=== PATIENT | female | born 1940 | race Caucasian/White ===

== ENCOUNTER 2016-11-16 19:46 | Emergency (ER) | payer OTHER ==
[~2016-11-16] VITALS: Ht 160 cm; Wt 63.4 kg
[2016-11-16 19:49] VITALS: Ht 160 cm; Wt 63.4 kg
[2016-11-16] MEDS ORDERED: SOD CHLORIDE 0.9% 1,000 ML IV STA ×2 (19:52)
[2016-11-16] MEDS ORDERED: CEFEPIME 2GM/50 ML (PMX) 50 ML IVPB STA (19:52)
[2016-11-16] MEDS ORDERED: VANCOMYCIN 1 GM (PMX) 250 ML IVPB ONE (20:00)
[2016-11-16 20:28] LABS: BASOPHILS % 0.3 % (0.0-2.0); HEMATOCRIT 35.6 % (37.0-47.0); LYMPHOCYTES % 11.4 % (15.0-51.0); MEAN CORPUSCULAR HEMOGLOBIN 29.1 pg (29.0-33.0); MEAN CORPUSCULAR HGB CONC 33.6 g/dl (32.0-37.0); MEAN CORPUSCULAR VOLUME 86.6 fl (82.0-101.0); MEAN PLATELET VOLUME 8.2 fl (7.4-10.4); MONOCYTE # 0.4 10^3/ul (0.3-0.9); MONOCYTES % 4.6 % (0.0-11.0); NEUTROPHIL # 7.1 10^3/ul (1.6-7.5); NEUTROPHILS % 83.7 % (39.0-77.0); PLATELET COUNT 471 10^3/UL (140-440); RED BLOOD COUNT 4.11 10^6/ul (4.20-5.40); RED CELL DISTRIBUTION WIDTH 14.9 % (11.5-14.5); UNCORRECTED WBC 8.5 10^3/ul (4.8-10.8); WHITE BLOOD COUNT 8.5 10^3/ul (4.8-10.8)
[2016-11-16 20:29] LABS: ALBUMIN 4.1 g/dl (3.3-4.9); CHLORIDE 96 mmol/L (97-110); POTASSIUM 4.1 mmol/L (3.5-5.1); SODIUM 135 mmol/L (135-144)
[2016-11-16 20:30] LABS: ADD UMIC YES; URINE BILIRUBIN (Dip) NEGATIVE (NEGATIVE); URINE BLOOD (Dip) 2+ (NEGATIVE); URINE COLOR LT. YELLOW (YELLOW); URINE GLUCOSE (Dip) NEGATIVE (NEGATIVE); URINE KETONES (Dip) TRACE (NEGATIVE); URINE LEUKOCYTE ESTERASE (Dip) NEGATIVE (NEGATIVE); URINE NITRITE (Dip) NEGATIVE (NEGATIVE); URINE TOTAL PROTEIN (Dip) TRACE (NEGATIVE); URINE UROBILINOGEN (Dip) 0.2 E.U./dL (0.1-1.0)
[2016-11-16 20:30] LABS: CONDITION 1; LH ANALYZER COMMENTS 1
[2016-11-16 20:31] LABS: CREATININE 0.54 mg/dl (0.44-1.00)
[2016-11-16 20:32] LABS: ALANINE AMINOTRANSFERASE 77 IU/L (13-69); ALBUMIN/GLOBULIN RATIO 0.95; ALKALINE PHOSPHATASE 197 IU/L (42-121); ANION GAP 16 (8-16); ASPARTATE AMINO TRANSFERASE 49 IU/L (15-46); BILIRUBIN,INDIRECT 0.9 mg/dl (0-1.1); BILIRUBIN,TOTAL 0.9 mg/dl (0.2-1.3); BLOOD UREA NITROGEN 11 mg/dl (7-20); CARBON DIOXIDE 27 mmol/L (21-31); GLUCOSE 138 mg/dl (70-220); TOTAL PROTEIN 8.4 g/dl (6.1-8.1)
[2016-11-16 20:33] LABS: CALCIUM 9.2 mg/dl (8.4-10.2)
[2016-11-16 20:34] LABS: INR 0.98
--- NOTE | 2016-11-16 20:36 | RADRPT ---
PROCEDURE: CT brain without IV contrast. CLINICAL INDICATION: Altered mental status. TECHNIQUE: CT examination of the brain was performed on a 64-slice multidetector scanner. The pat ient was examined without IV contrast. Sagittal and coronal reformatted images were made. The imag es were reviewed on a PACS workstation. Radiation dose: Total CTDIvol: 44.9 mGY. Total DLP: 720 mGy-cm. COMPARISON: None available. FINDINGS: There is mild cerebral atrophy. There is mild periventricular low density white matter changes, lik madhuri microvascular ischemic changes. The davis/white matter differentiation is well preserved. There is no other abnormal intra-axial high, low density lesion, suggesting tumor, infarct , bleeding, av malformation or inflammatory mass. No subdural or epidural hematoma. The visualized paranasal sinuses and mastoid air cells are clear. The orbits are unremarkable. The calvarium is intact. No scalp abnormalities are seen. IMPRESSION: 1. Mild cerebral atrophy. 2. Mild periventricular low density white matter changes, likely microvascular ischemic changes. RPTAT: GG .Marcos Cornejo MD, MD Date Time Electronically viewed and signed by .Marcos Cornejo MD, MD on 11/16/2016 20:36 .Y/
--- NOTE | 2016-11-16 20:39 | RADRPT ---
PROCEDURE: XR Chest. CLINICAL INDICATION: Possible sepsis. TECHNIQUE: Single frontal view of the chest was obtained COMPARISON: None FINDINGS: Cardiomegaly. Tortuous thoracic aorta. Question adenopathy in the right middle mediastinum, and co nsider CT correlation. Findings may represent neoplasm. Mild patchy atelectasis versus airspace disease at the left lung base. Lungs are otherwise substanti ally clear. There is no pleural effusion or pneumothorax. IMPRESSION: 1. Question adenopathy in the right mediastinum, and consider CT correlation. 2. Mild atelectasis versus airspace disease at the left lung base. RPTAT: [facility] Physician [place] Date Time Electronically viewed and signed by Physician [place] on 11/16/2016 20:38 RS/
[2016-11-16 20:43] LABS: MUCUS,URINE FEW
[2016-11-16 20:44] LABS: TROPONIN-I < 0.010 ng/ml (0.00-0.12)
[2016-11-16 20:55] LABS: PARTIAL THROMBOPLASTIN TIME 24.2 Sec (25.0-35.0)
[2016-11-16] MEDS ORDERED: SLF10OP15 LEFT EYE (20:58)
--- NOTE | 2016-11-16 20:59 | ERD ---
ER Documentation Chief Complaint Date/Time DATE: 11/16/16 TIME: 20:59 Chief Complaint ALOC, PATIENT HAS NOT BEEN ACTING HERSELF, C/O HEADACHE. ROS All systems reviewed and are negative except as per history of present illness. Medications Home Meds Active Scripts Sulfacetamide Sodium* (Sulfacetamide Sodium*) 10%-15 Ml Opht Drops, 1 DROP LEFT EYE Q2H for 7 Days, EA Prov:SCHUYLER DREW MD 11/16/16 PMhx/Soc History of Surgery: Yes (gall bladder removal) Anesthesia Reaction: No Hx Neurological Disorder: No Hx Respiratory Disorders: No Hx Cardiac Disorders: No Hx Psychiatric Problems: No Hx Miscellaneous Medical Probl: Yes (Alzeihmers, DVT) Hx Alcohol Use: No Hx Substance Use: No Hx Tobacco Use: No Smoking Status: Never smoker Physical Exam Vitals Vital Signs Date Time Temp Pulse Resp B/P Pulse Ox O2 Delivery O2 Flow Rate FiO2 11/16/16 20:21 65 18 169/69 99 Room Air 11/16/16 19:49 97.2 60 17 168/83 98 Physical Exam Const: [] Head: Atraumatic Eyes: Normal Conjunctiva ENT: Normal External Ears, Nose and Mouth. Neck: Full range of motion..~ No meningismus. Resp: Clear to auscultation bilaterally Cardio: Regular rate and rhythm, no murmurs Abd: Soft, non tender, non distended. Normal bowel sounds Skin: No petechiae or rashes Back: No midline or flank tenderness Ext: No cyanosis, or edema Neur: Awake and alert Psych: Normal Mood and Affect Result Diagram: 11/16/16195411/16/161954 Results 24 hrs Laboratory Tests Test 11/16/16 19:55 11/16/16 20:18 Activated Partial Thromboplast Time 24.2Sec Alanine Aminotransferase (ALT/SGPT) 77IU/L Albumin 4.1g/dl Albumin/Globulin Ratio 0.95 Alkaline Phosphatase 197IU/L Anion Gap 16 Aspartate Amino Transf (AST/SGOT) 49IU/L Basophils # 0.010^3/ul Basophils % 0.3% Blood Morphology Comment Blood Urea Nitrogen 11mg/dl Calcium Level 9.2mg/dl Carbon Dioxide Level 27mmol/L Chloride Level 96mmol/L Creatinine 0.54mg/dl Direct Bilirubin 0.00mg/dl Eosinophils # 0.010^3/ul Eosinophils % 0.0% Globulin 4.30g/dl Glucose Level 138mg/dl Hematocrit 35.6% Hemoglobin 12.0g/dl INR International Normalized Ratio 0.98 Indirect Bilirubin 0.9mg/dl Lactic Acid Level 1.3mmol/L Lymphocytes # 1.010^3/ul Lymphocytes % 11.4% Mean Corpuscular Hemoglobin 29.1pg Mean Corpuscular Hemoglobin Concent 33.6g/dl Mean Corpuscular Volume 86.6fl Mean Platelet Volume 8.2fl Monocytes # 0.410^3/ul Monocytes % 4.6% Neutrophils # 7.110^3/ul Neutrophils % 83.7% Nucleated Red Blood Cells # 0.010^3/ul Nucleated Red Blood Cells % 0.0/100WBC Platelet Count 11368^3/UL Potassium Level 4.1mmol/L Prothrombin Time 13.0Sec Prothrombin Time Ratio 1.0 Red Blood Count 4.1110^6/ul Red Cell Distribution Width 14.9% Sodium Level 135mmol/L Total Bilirubin 0.9mg/dl Total Protein 8.4g/dl Troponin I < 0.010ng/ml White Blood Count 8.510^3/ul Urine Bilirubin NEGATIVE Urine Clarity CLEAR Urine Color LT. YELLOW Urine Glucose NEGATIVE% Urine Hemoglobin 2+ Urine Ketones TRACE Urine Leukocyte Esterase NEGATIVE Urine Microscopic RBC 2-5/HPF Urine Microscopic WBC 0-2/HPF Urine Mucus FEW Urine Nitrite NEGATIVE Urine Specific [place] 1.025 Urine Total Protein TRACE Urine Urobilinogen 0.2 E.U./dL Urine pH 6.5 Current Medications Medications (Trade) Dose Ordered Sig/Suzan Route PRN Reason Start Time Stop Time Status Last Admin Dose Admin Cefepime HCl 50 ml @ 100 mls/hr ONCE STAT IVPB 11/16/16 19:52 11/16/16 20:21 DC 11/16/16 20:18 Vancomycin HCl 250 ml @ 125 mls/hr ONCE ONCE IVPB 11/16/16 20:00 11/16/16 21:59 Sodium Chloride 1,000 ml @ 1,000 mls/hr Q1H STAT IV 11/16/16 19:52 11/16/16 20:51 DC 11/16/16 20:18 Sodium Chloride (NS) 1,000 ml @ 1,000 mls/hr Q1H STAT IV 11/16/16 19:52 11/16/16 20:51 DC Procedures/MDM EKG read by me: Rate/Rhythm: Regular rate and rhythm at a rate of 64 Intervals: Normal Impression: No evidence of ischemia or arrhythmia Chest x-ray negative for pneumonia per radiology. CT head shows no intracranial hemorrhage or mass per radiology. Departure Diagnosis: Primary Impression: Conjunctivitis Conjunctivitis type: acute Acute conjunctivitis type: unspecified Laterality: left Qualified Code: H10.32 - Acute conjunctivitis of left eye, unspecified acute conjunctivitis type Additional Impression: Altered level of consciousness Condition: Fair Patient Instructions: Altered Loc Referrals: Your doctor Additional Instructions: FOLLOW UP WITH YOUR PRIMARY CARE PHYSICIAN TOMORROW.Return to this facility if you are not improving as expected. SCHUYLER DREW MD Nov 16, 2016 20:59
[2016-11-16] MEDS ORDERED: QUET50TA22 PO (21:03)
[2016-11-16] MEDS ORDERED: DONE5TAB7 PO (21:04)
[2016-11-16] MEDS ORDERED: MEMA10TA16 PO (21:04)
[2016-11-16] MEDS ORDERED: ESCI20TA38 PO (21:05)
[2016-11-16] MEDS ORDERED: DEXT1CAP PO (21:06)
[2016-11-16 21:14] VITALS: BP 166/79; PULSE 64; RESP 17
== END 2016-11-16 21:57 | disposition home or self-care (01) ==
LOC: E/R 19:46
DX: H10.32 Unspecified acute conjunctivitis, left eye (principal); R40.4 Transient alteration of awareness; R40.2132 Coma scale, eyes open, to sound, at arrival to emergency department; R40.2352 Coma scale, best motor response, localizes pain, at arrival to emergency department; R40.2222 Coma scale, best verbal response, incomprehensible words, at arrival to emergency department; G30.9 Alzheimer's disease, unspecified
CPT/HCPCS: 36415; 70450; 71010; 80053; 81001; 83605; 84484; 85025; 85610; 85730; 87040; 87086; 93005; 96374; J0692; J7030; Z7502; 81003; J3370